=== PATIENT | male | born 1970 | race Caucasian/White ===

== ENCOUNTER → 2018-03-20 | Day surgery (SDC) | payer OTHER ==
[2018-03-13 16:12] VITALS: BMI 29.2
[~2018-03-20] MED LIST: ACETAMINOPHEN IV (For NPO) 1,000 MG in EMPTY BAG 1 BAG IVPB ONE; ACETAMINOPHEN IV (For NPO) 1,000 MG/100 ML VIAL ONE; DEXAMETHASONE SOD PHOSPHATE 10 MG/ML 1 ML VIAL IV ONE; GLYCOPYRROLATE 0.2 MG/ML 2 ML VIAL ONE; HEPARIN SODIUM,PORCINE 5,000 UNIT/ML 1 ML VIAL SQ ONE; LIDOCAINE 1% 20 ML VIAL (10MG/ML) FOR IV START INTRADERMA ONE; LIDOCAINE 1% INJ 10MG/ML (20 ML MDV) ONE; MIDAZOLAM 2 MG/2 ML VIAL IV PRN; MIDAZOLAM 2 MG/2 ML VIAL ONE; NEOSTIGMINE 1 MG/ML 10 ML VIAL ONE; ONDANSETRON 4 MG/2 ML VIAL IVP ONE; PROPOFOL 10 MG/ML 20 ML VIAL IV ONE; ROCURONIUM BROMIDE 10 MG/ML 10 ML VIAL IV ONE; ROPIVACAINE 5 MG/ML 30 ML VIAL MISCELLANE ONE; SCOPOLAMINE 1.5MG/72HR PATCH TRANSDERM ONE; SUCCINYLCHOLINE CHLORIDE 100 MG/5 ML SYR IV ONE; TAMSULOSIN 0.4 MG CAP.ER.24H PO STA; ceFAZolin IN SWFI 2 GM/20 ML SYRINGE IVP ONE; fentaNYL (PF) 50 MCG/ML 2 ML AMP IV PRN; fentaNYL (PF) 50 MCG/ML 2 ML AMP ONE
--- NOTE | 2018-03-20 07:41 | P.GSHP ---
History of Present Illness H&P Date: 03/20/18 CHIEF COMPLAINT: Inguinal hernia, right. HISTORY OF PRESENT ILLNESS: The patient is a 47-year-old male who presents with a history of swelling and pain along the right groin. He has had previous repair. He's noted increased swelling including pain of the area. Now he presents for repair of his inguinal hernia. PAST MEDICAL HISTORY: Please see list. PAST SURGICAL HISTORY: Please see list. MEDICATIONS: Please see list. ALLERGIES: Please see list. SOCIAL HISTORY: No illicit drug use FAMILY HISTORY: No reports of Crohn disease or ulcerative colitis. REVIEW OF ORGAN SYSTEMS: CONSTITUTIONAL: No reports of fevers or chills. No reports of weight loss despite prior attempts. GI: Denies any blood in stools or constipation. PHYSICAL EXAM: VITAL SIGNS: Stable GENERAL: Well-developed pleasant male in no acute distress. HEENT: No scleral icterus. Extraocular movements grossly intact. Moist buccal mucosa. NECK: Supple without lymphadenopathy. CHEST: Unlabored respirations. Equal bilateral excursions. CARDIOVASCULAR: Regular rate and rhythm. Distal 2+ pulses. ABDOMEN: Soft, nondistended. No peritoneal signs. Palpable defect of the right groin. MUSCULOSKELETAL: No clubbing, cyanosis, or edema. ASSESSMENT: 1. Inguinal hernia, right PLAN: 1. Recommend proceeding with a robotic inguinal repair with mesh with possible bilateral approach. 2. Benefits and risks of surgical intervention was discussed including possibility of open technique. 3. DVT prophylaxis. 4. Antibiotic prophylaxis. Past Medical History Past Medical History: Diabetes Mellitus, GERD/Reflux, Hyperlipidemia Additional Past Medical History / Comment(s): Hx hypertension, resolved now. 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 History of Any Multi-Drug Resistant Organisms: None Reported Past Surgical History: Cholecystectomy, Hernia Repair Additional Past Surgical History / Comment(s): Hernia repair X3. Past Anesthesia/Blood Transfusion Reactions: No Reported Reaction Past Psychological History: No Psychological Hx Reported Smoking Status: Current every day smoker Past Alcohol Use History: None Reported Additional Past Alcohol Use History / Comment(s): Down to 5 cigarettes a day, has been smoking for 30 yrs. Past Drug Use History: Marijuana Additional Drug Use History / Comment(s): Medical Marijuana, oils, edibles, uses for neuropathy flare ups. - Past Family History Son(s) Family Medical History: Deep Vein Thrombosis (DVT) Medications and Allergies Home Medications Medication Instructions Recorded Confirmed Type Alogliptin Benzoate [Alogliptin] 12.5 mg PO QAM 03/13/18 03/13/18 History Atorvastatin (Unknown Dose) 1 tab PO QAM 03/13/18 03/13/18 History Omeprazole [PriLOSEC] 40 mg PO Q48H 03/13/18 03/13/18 History Pregabalin [Lyrica] 100 mg PO TID 03/13/18 03/13/18 History buPROPion SR [Wellbutrin Sr] 150 mg PO BID 03/13/18 03/13/18 History metFORMIN HCL 1,000 mg PO BID 03/13/18 03/13/18 History Allergies Allergy/AdvReac Type Severity Reaction Status Date / Time No Known Allergies Allergy Verified 03/13/18 16:13
[2018-03-20 11:01] VITALS: RESP 16
[2018-03-20] MEDS: LACTATED RINGERS 1,000 ML IV SCH (11:22)
[2018-03-20 11:43] LABS: Glucose,Whole Blood 120 mg/dL (75-99)
--- NOTE | 2018-03-20 14:08 | P.PCN ---
Date of Procedure: 03/20/18 Preoperative Diagnosis: History of bilateral inguinal hernia repairs, bilateral inguinal pain right greater than left Postoperative Diagnosis: Recurrent incarcerated right inguinal hernia, peritoneal adhesions left lower quadrant Procedure(s) Performed: Robotic-assisted endoscopic lysis of adhesions, robotic-assisted reduction and repair of incarcerated recurrent right inguinal hernia without mesh Anesthesia: JESSICA local Surgeon: Renu Perrin Estimated Blood Loss (ml): 5 Pathology: none sent Condition: stable Operative Findings: 1. Incarcerated right inguinal hernia involving omentum reduced and resected 2. Left lower quadrant peritoneal adhesions greater omentum to abdominal wall including sigmoid to the left pelvis 3. Pursestring repair and oversew for right inguinal hernia repair
[2018-03-20 14:28] VITALS: TEMP 98.4
[2018-03-20 15:10] VITALS: BP 145/87; PULSE 91
--- NOTE | 2018-04-05 21:30 | P.OP ---
Date of Procedure: 03/20/18 Description of Procedure: Date of Procedure: 03/20/18 SURGEON: RENU PERRIN MD PREOPERATIVE DIAGNOSES: 1. History of bilateral inguinal hernia repairs 2. Bilateral inguinal pain right greater than left 3. Diabetes type 2, etz-[id number]-uvnlvygdr with neuropathy 4. Gastric esophageal reflux disease 5. Hyperlipidemia 6. Tobacco abuse 7. Hypertensive heart disease POSTOPERATIVE DIAGNOSES: 1. History of bilateral inguinal hernia repairs 2. Bilateral inguinal pain right greater than left 3. Diabetes type 2, [id number]-mnmtakimo with neuropathy 4. Gastric esophageal reflux disease 5. Hyperlipidemia 6. Tobacco abuse 7. Hypertensive heart disease 8. Recurrent incarcerated right inguinal hernia 9. Peritoneal adhesions left lower quadrant Procedure(s) Performed: 1. Robotic-assisted endoscopic lysis of adhesions, 2. Robotic-assisted reduction and repair of incarcerated recurrent right inguinal hernia without mesh Anesthesia: KOBEA, local Surgeon: Renu Perrin Estimated Blood Loss (ml): 5 Pathology: none sent Condition: stable COMPLICATIONS: None. Operative Findings: 1. Incarcerated right inguinal hernia involving omentum reduced and resected 2. Left lower quadrant peritoneal adhesions greater omentum to abdominal wall including sigmoid to the left pelvis 3. Pursestring repair and oversewn for right inguinal hernia repair INDICATIONS: The patient is a 47-year-old gentleman who presents with history of bilateral groin pain now with recurrence of his hernia. Now he presents for definitive surgical intervention. Laparoscopic versus open and robotic approaches were discussed. Benefits and risks including bleeding, infection, injury to the vas deferens as well as sterility and chronic groin pain were reviewed. Placement of mesh was also described. Informed consent was obtained. DESCRIPTION: In the preoperative area, the patient was marked with indelible marker along the inguinal hernia. The patient was brought to the operating room and initially laid in supine position. The abdomen had been prepped and draped in standard sterile fashion. [place]an draping was also placed. F Prior to incision, a timeout protocol was confirmed with surgical team regarding patient's name including procedures to be performed and location along the right groin. Initial positioning for the robotic assisted ports were selected whereby 20 cm superior to the target anatomy, 0 degree 5 mm laparoscopic trocar entry was performed at the left upper quadrant. The abdomen was insufflated to 15 mmHg which he had tolerated well. Diagnostic laparoscopy demonstrated recurrent iincarcerated indirect inguinal hernia along the right groin. Severe adhesions were identified along the left groin. The sigmoid colon was also adherent to the left colon. Next, along the epigastrium, 8 mm robot trocar was placed. An 8-mm robotic trocar was placed under direct visualization at the right upper quadrant. An 8 mm port was placed at the left upper quadrant. All trocars were positioned between 8 to 10-cm apart from each other. The [employer] robot was primed, draped, prepared for docking along the left side of the patient. I then went to the [employer] console. The photography assistant was at bedside for exchange of the robot arms and equipment. No hernia was identified along the left groin. Adhesions along the left lower quadrant was addressed using scissors. The right inguinal hernia sac was evaginated whereby the peritoneum was scored using Endo scissors with cautery. Once completely reduced into the abdominal cavity, the peritoneal sac of the hernia was stripped and incarcerated omentum of the right groin was reduced. The sac was resected and then passed off for further pathological analysis. The size of the hernia defect was 2 cm with intraoperative films obtained. Using a 2-0 VLOC, the peritoneal defect of the right inguinal hernia site was closed using a pursestring suture. The defect was found to be completely closed with complete reduction of the right inguinal hernia was confirmed. The robot was undocked from the patient's bedside. I then rescrubbed into the case. Insufflation was released from the abdominal cavity and all instruments were removed from the abdominal cavity. The rest of incisions were reapproximated using 4-0 Monocryl in a running subcuticular fashion. Local anesthetic was placed along the incision including for a right groin block. Incisions were cleansed using dilute hydrogen peroxide. Liquid glue was applied to the skin. At the end of the procedure, the needle, sponge and instrument counts had been verified correct by the surgical asst. The patient had tolerated the procedure well and was taken to the postanesthesia care unit in stable condition. Console time 25 minutes Plan - Discharge Summary New Discharge Prescriptions: New HYDROcodone/APAP 5-325MG [[place] 5-325] 1 tab PO Q4HR PRN 3 Days #18 tab PRN Reason: Pain No Action Pregabalin [Lyrica] 100 mg PO TID metFORMIN HCL 1,000 mg PO BID Omeprazole [PriLOSEC] 40 mg PO Q48H Atorvastatin (Unknown Dose) 1 tab PO QAM Alogliptin Benzoate [Alogliptin] 12.5 mg PO QAM buPROPion SR [Wellbutrin Sr] 150 mg PO BID Discharge Medication List Alogliptin Benzoate [Alogliptin] 12.5 mg PO QAM 03/13/18 [History] Atorvastatin (Unknown Dose) 1 tab PO QAM 03/13/18 [History] Omeprazole [PriLOSEC] 40 mg PO Q48H 03/13/18 [History] Pregabalin [Lyrica] 100 mg PO TID 03/13/18 [History] buPROPion SR [Wellbutrin Sr] 150 mg PO BID 03/13/18 [History] metFORMIN HCL 1,000 mg PO BID 03/13/18 [History] HYDROcodone/APAP 5-325MG [[place] 5-325] 1 tab PO Q4HR PRN 3 Days #18 tab [Rx] Follow up Appointment(s)/Referral(s): Renu Perrin MD [STAFF PHYSICIAN] - 03/25/18 ([facility]) Patient Instructions/Handouts: Inguinal Hernia Repair (DC) Activity/Diet/Wound Care/Special Instructions: No lifting over 4 pounds in 4 weeks. May shower. No bathtub soaks. Discharge Disposition: HOME SELF-CARE
== END | disposition home or self-care (01) ==
LOC: OR 08:38
PROVIDERS: ATTEND Surgery Plastic and Reconstructive Surgery
DX: K40.31 Unilateral inguinal hernia, with obstruction, without gangrene, recurrent (principal); K66.0 Peritoneal adhesions (postprocedural) (postinfection); K21.9 Gastro-esophageal reflux disease without esophagitis; E78.5 Hyperlipidemia, unspecified; E11.40 Type 2 diabetes mellitus with diabetic neuropathy, unspecified; I11.9 Hypertensive heart disease without heart failure; F17.210 Nicotine dependence, cigarettes, uncomplicated; Z79.84 Long term (current) use of oral hypoglycemic drugs; Z79.899 Other long term (current) drug therapy
CPT/HCPCS: 49651; J2250; J1644; J1100; J2710; J2405; J2001; J3010; J2795; J0131; J0330; J2704; J0690